=== PATIENT | female | born 1965 | race Caucasian/White ===

== ENCOUNTER 2019-05-03 08:10 | Outpatient (CLI) | payer OTHER, SELFPAY ==
--- NOTE | 2019-05-03 08:21 | US_ITS ---
WS: [id number] ADDITIONAL VIEWS LEFT MAMMOGRAM LEFT BREAST ULTRASOUND HISTORY: LT BREAST MASS COMPARISON: 03/10/2019 and 08/27/2017 LEFT MAMMOGRAM: Spot compression views and true ML. Partially obscured mass persists on spot compression views. Lobulated mass with partially obscured ally rders persists near 12:00. Mass is significantly obscured by the overlying normal soft tissue. Mass m easures about 15 mm. LEFT BREAST ULTRASOUND 2-D and color Doppler imaging submitted. At 11:00, 1 to 2 cm from the nipple is a lobulated cyst with smooth borders and increased through tra nsmission. This is either a single lobulated cyst or 2 cysts closely associated with each other with a thin imperceptible wall. The entire collection measures 1.8 x 1.0 cm. No increased vascularity or s olid component. US/US breast LT limited* [id number] IMPRESSION: BI-RADS: 2-Benign FOLLOW UP: 1 Year Follow-up Recently described LEFT breast mass corresponds to a a single lobulated cyst or 2 adjacent cysts.
== END 2019-05-03 08:11 | disposition home or self-care (01) ==
LOC: RADSHAW 08:13
PROVIDERS: Family Provider Family Medicine; Visit Provider Family Medicine
DX: N60.02 Solitary cyst of left breast (principal); N63.20 Unspecified lump in the left breast, unspecified quadrant
CPT/HCPCS: 76642; 77065

== ENCOUNTER 2020-10-21 12:33 | Outpatient (CLI) | payer OTHER, SELFPAY ==
--- NOTE | 2020-10-21 13:05 | MM_ITS ---
WS: [id number] SCREENING DIGITAL MAMMOGRAM WITH CAD HISTORY: SCREENING COMPARISON: 05/03/2019 and 03/10/2019 and 08/27/2017 Bilateral CC and MLO views submitted. Computer aided detection analyzed. Breast composition: The breasts are extremely dense, which lowers the sensitivity of mammography. Nodule in the anterior RIGHT breast measures 1.1 cm posterior to the nipple. Partially obscured tammy ns and slight increase in density. There is an additional ovoid partially obscured nodule upper out er quadrant of the LEFT breast at a middle depth measuring 2.8 x 1.8 cm. MM/[place] [id number] IMPRESSION: BI-RADS: 0-Incomplete: Need additional imaging evaluation FOLLOW UP: Need Additional Imaging Bilateral breasts: Spot compression views (CC and MLO). True ML. Ultrasound to follow if abnormality persists.
--- NOTE | 2020-10-21 13:55 | XR_ITS ---
WS: [id number] SCREENING DEXA SCAN [facility] CLINICAL INFORMATION: POST MENAPAUSAL COMPARISON: None. FINDINGS: The L1-L4 bone mineral density measures 1.078 g/cm2. This corresponds to a T score score of -0.9 and Z score of 0.0. Left femoral neck bone mineral density measures 0.932 g/cm2. This corresponds to a T score of -0.6 an d Z score of 0.1. Right femoral neck bone mineral density measures 0.961 g/cm2. This corresponds to a T score -0.4of an d Z score of 0.3. Mean femoral neck bone mineral density measures 0.947 g/cm2. This corresponds to a T score of -0.5 an d Z score of 0.2. XR/XR DEXA axial skeleton* [id number] IMPRESSION: Normal bone mineralization. Patient's FRAX calculated 10 year probability for major osteoporotic fracture i s 5.6 % and osteoporotic hip fracture is 0.2%.
== END 2020-10-21 12:34 | disposition home or self-care (01) ==
LOC: RADSHAW 12:40
PROVIDERS: PCP Family Medicine; Visit Provider Family Medicine
DX: Z12.31 Encounter for screening mammogram for malignant neoplasm of breast (principal); Z78.0 Asymptomatic menopausal state
CPT/HCPCS: 77067; 77080

== ENCOUNTER 2021-04-15 09:41 | Outpatient (CLI) | payer OTHER, SELFPAY ==
--- NOTE | 2021-04-15 09:46 | US_ITS ---
WS: [id number] ADDITIONAL VIEWS BILATERAL MAMMOGRAM AND BILATERAL BREAST ULTRASOUND ADDITIONAL VIEWS BILATERAL MAMMOGRAM HISTORY: INCONCLUSIVE MAMMOGRAM COMPARISON: 10/21/2020 and 05/03/2019 and 03/10/2019 and 08/27/2017 Right breast: Dense fibroglandular tissue anteriorly. Partially obscured asymmetry anterior at the [place] of the nipple measures 12 mm. Ultrasound to follow. Left breast: There are multiple partially obscured masses in the superior and upper outer quadrant of the LEFT breast for which no increase in size is identified. Ultrasound to follow to evaluate for so lid nodules. BREAST ULTRASOUND RIGHT breast: Simple cyst at 12:00 at the areolar measures 1.4 x 1.6 x 1.0 cm. Corresponds to the zack mographic abnormality. LEFT breast: Large cyst at 12:00, 1 cm from the nipple measures 2.5 x 2.4 x 1.3 cm. There are multipl e additional cysts with no solid masses in the upper outer quadrant. US/US breast BI limited* [id number] IMPRESSION: BI-RADS: 2-Benign FOLLOW UP: 1 Year Follow-up
== END 2021-04-15 09:42 | disposition home or self-care (01) ==
LOC: RADSHAW 09:44
PROVIDERS: PCP Family Medicine; Visit Provider Family Medicine
DX: R92.2 Inconclusive mammogram (principal); N63.21 Unspecified lump in the left breast, upper outer quadrant
CPT/HCPCS: 76642; 77066

== ENCOUNTER 2022-06-11 08:57 | Outpatient (CLI) | payer OTHER, SELFPAY ==
--- NOTE | 2022-06-11 09:05 | MM_ITS ---
WS: [id number] SCREENING DIGITAL BREAST TOMOSYNTHESIS MAMMOGRAM WITH CAD HISTORY: SCREENING COMPARISON: 04/15/2021, 10/21/2020 and 03/10/2019 Bilateral CC and MLO with tomosynthesis and synthetic mammography submitted. Computer aided detection analyzed. Breast composition: The breasts are heterogeneously dense, which may obscure small masses. Bilateral areas of increased consolidation and masses within each breast. On prior studies these have been desc ribed as cysts. These have changed in configuration and size therefore ultrasound evaluation needs to be performed to be sure there is no adjacent soft tissue mass developing. No calcification. No disto rtion. MM/[place] [id number] IMPRESSION: BI-RADS: 0-Incomplete: Need additional imaging evaluation FOLLOW UP: Need Additional Imaging Recommendation: Bilateral breast ultrasound. To ensure the change in these mass es is related to cyst formation. RIGHT breast: Anterior 12:00. LEFT breast: Upper outer quadrant middle depth.
== END 2022-06-11 08:58 | disposition home or self-care (01) ==
LOC: RAD 09:00
PROVIDERS: PCP Family Medicine; Visit Provider Family Medicine
DX: Z12.31 Encounter for screening mammogram for malignant neoplasm of breast (principal)
CPT/HCPCS: 77063; 77067

== ENCOUNTER 2022-07-24 12:14 | Outpatient (CLI) | payer OTHER, SELFPAY ==
--- NOTE | 2022-07-24 | US_ITS ---
WS: [id number] ULTRASOUND BILATERAL BREAST HISTORY: 04/15/2021 and 06/11/2022 COMPARISON: None available. TECHNIQUE: 2-D and Doppler. RIGHT breast: Stable cyst at 12:00 1 cm from the nipple. There is a new cyst containing debris at 12: 00 adjacent to the areola. This corresponds to the new finding mammographically. No solid mass. LEFT breast: Multiple cysts in the upper outer quadrant are identified. The number of cysts has incre ased. This corresponds to the findings mammographically. No solid mass. US/US breast BI limited* [id number] IMPRESSION: BI-RADS: 2-Benign FOLLOW-UP: 1 Year Follow-up New findings on the screening mammogram correspond to additional cysts within e ach breast. No solid mass.
== END 2022-07-24 12:15 | disposition home or self-care (01) ==
LOC: RAD 12:16
PROVIDERS: PCP Family Medicine; Visit Provider Family Medicine
DX: R92.8 Other abnormal and inconclusive findings on diagnostic imaging of breast (principal)
CPT/HCPCS: 76642

== ENCOUNTER 2022-12-12 13:59 | Emergency (ER) | payer OTHER, SELFPAY ==
[2022-12-12 14:10] VITALS: BP 188/108; PULSE 78; RESP 15; TEMP 36.5; O2SAT 98; BMI 23.6
--- NOTE | 2022-12-12 14:49 | W.ED.ABDPA2 ---
HPI - Abdominal Pain General: Chief Complaint: Abdominal Pain Stated Complaint: abd/back pain Time Seen by Provider: 12/12/22 14:08 Source: patient Mode of arrival: ambulatory History of Present Illness: 57-year-old female who presents to the emergency room complaining of chronic diarrhea for the last several weeks. Initially no abdominal pain now some epigastric discomfort. She seen her doctor for a couple of times a started on medications such as Pepcid and proton pump inhibitor she does not feel like it is improving at all she has not had any recent antibiotics she denies hematochezia melena hematemesis coffee-ground emesis she is not a heavy drinker. Denies any dysuria urgency or frequency. MD elicited complaint: abdominal pain Onset (ago): week(s) Pain Consistency: intermittent Location: Diffuse Severity: mild Quality: aching Exacerbating factors: nothing Relieving factors: nothing Associated Symptoms: Reports bloating, diarrhea and poor appetite; Denies anorexia, belching, change in bowel habits, change in stool character, chills, coffee ground emesis, constipation, GI cramping, dyspepsia, dysuria, excessive flatus, fever(s), heartburn, hematochezia, hematuria, hematemesis, fecal incontinence, loose stools, melena, nausea, syncope and vomiting Review of Systems Const: Reports: fatigue; Denies: fever(s) or chills ENMT: Denies: throat pain, ear or mastoid pain, nasal discharge or nasal congestion Card: Denies: chest pain or syncope Resp: Denies: dyspnea, productive cough or non-productive cough GI: Reports: abdominal pain, diarrhea and bloating; Denies: nausea, vomiting, hematemesis, coffee ground emesis, heartburn, constipation, GI cramping, belching, excessive flatus, fecal incontinence, change in bowel habits, change in stool character, hematochezia or melena : Denies: dysuria, urinary frequency, urinary urgency or hematuria Skin/Breast: Denies: rash or pruritus Physical Exam Const: COMMON NORMALS: no acute distress GENERAL APPEARANCE: cooperative and comfortable ORIENTATION/CONSCIOUSNESS: Yes awake, Yes oriented to person, Yes oriented to place and Yes oriented to time HENMT: COMMON NORMALS: normocephalic, atraumatic and hearing grossly normal bilaterally HEAD & SCALP: normocephalic and atraumatic Resp: COMMON NORMALS: normal respiratory effort, No retractions, No use of accessory muscles and clear to auscultation bilaterally AUSCULTATION: clear to auscultation bilaterally Cardio: COMMON NORMALS: regular rate, regular rhythm and No murmurs present (Cardio) RATE: regular rate RHYTHM: regular rhythm GI: COMMON NORMALS: Soft to palpation and No hepatosplenomegaly present AUSCULTATION: Yes normoactive bowel sounds PALPATION: Yes Soft to palpation, No Tenderness to palpation present (GI), No Guarding due to palpation present (GI) and Yes No hepatosplenomegaly present Extremity: COMMON NORMALS: normal to inspection, capillary refill normal, no clubbing, cyanosis or edema, no calf tenderness and no pedal edema Neuro: SENSORIUM/ORIENTATION: Yes oriented to person, Yes oriented to place and Yes oriented to time Skin: COMMON NORMALS: no rashes or lesions noted GENERAL SKIN EXAM: no rashes or lesions noted Course Vital Signs: Vital signs: Vital Signs Temperature 97.7 F 12/12/22 14:10 Pulse Rate 78 12/12/22 14:10 Respiratory Rate 15 12/12/22 14:10 Blood Pressure 188/108 12/12/22 14:10 Pulse Oximetry 98 12/12/22 14:10 MDM - Abdominal Pain Medical Decision Making Mild leukocytosis no left shift is an increased eosinophil count. No acute abdomen on exam and CT was unremarkable, with the exception of showing significant constipation. She is not able to give a stool sample at this time. I do not believe she has C. difficile suspect she is following as some encopresis. Laxatives to relieve constipation issues follow-up with her primary care provider if persists patient may need to be referred for colonoscopy. Medical Records I reviewed the patient's medical records. Lab Data I reviewed the patient's lab results. 12/12/22 14:45 12/12/22 14:45 Labs/Radiology: Radiology Impressions Abdomen/Pelvis CT 12/12/22 16:02 IMPRESSION: 1. No acute findings. 2. Findings suggestive of constipation. No bowel obstruction. Laboratory Results WBC 17.10 10^3/uL (3.29-11.43) H 12/12/22 14:45 RBC 4.53 10^6/uL (3.85-5.65) 12/12/22 14:45 Hgb 14.70 g/dL (11.27-16.99) 12/12/22 14:45 Hct 41.2 % (36-47) 12/12/22 14:45 MCV 90.9 fl (85-98) 12/12/22 14:45 MCH 32.5 pg (27-33) 12/12/22 14:45 MCHC 35.7 g/dL (30-55) 12/12/22 14:45 RDW 12.6 % (12.1-15.1) 12/12/22 14:45 Plt Count 346 10^3/cmm (157-399) 12/12/22 14:45 MPV 9.6 fL (7.4-10.4) 12/12/22 14:45 Neut % (Auto) 31.9 % 12/12/22 14:45 Lymph % (Auto) 26.5 % 12/12/22 14:45 [place] % (Auto) 3.9 % 12/12/22 14:45 Eos % (Auto) 37.1 % 12/12/22 14:45 Baso % (Auto) 0.4 % 12/12/22 14:45 Neut # (Auto) 5.46 10^3/uL (1.8-7.7) 12/12/22 14:45 Lymph # (Auto) 4.5 10^3/uL (0.8-4.8) 12/12/22 14:45 [place] # (Auto) 0.7 10^3/uL (0.2-0.9) 12/12/22 14:45 Eos # (Auto) 6.3 10^3/uL (0.0-0.8) H 12/12/22 14:45 Baso # (Auto) 0.1 10^3/uL (0.0-0.1) 12/12/22 14:45 Nucleated RBC % (auto) 0 % 12/12/22 14:45 Nucleated RBCs # 0.0 /100WBC 12/12/22 14:45 Sodium 138 mmol/L (136-145) 12/12/22 14:45 Potassium 3.9 mmol/L (3.5-5.1) 12/12/22 14:45 Chloride 104 mmol/L (98-107) 12/12/22 14:45 Carbon Dioxide 24 mmol/L (22-29) 12/12/22 14:45 Anion Gap 13.9 (5-19) 12/12/22 14:45 BUN 12 mg/dL (6-20) 12/12/22 14:45 Creatinine 0.6 mg/dL (0.5-0.9) 12/12/22 14:45 GFR Calculation 103.0 mL/min (90-130) 12/12/22 14:45 Glucose 118 mg/dL (65-115) H 12/12/22 14:45 Calculated Osmolality 287 mOsm/kg (285-295) 12/12/22 14:45 Calcium 8.7 mg/dL (8.5-10.5) 12/12/22 14:45 Total Bilirubin 0.2 mg/dL (0.15-1.2) 12/12/22 14:45 AST 17 U/L (0-32) 12/12/22 14:45 ALT 12 U/L (0-33) 12/12/22 14:45 Alkaline Phosphatase 56 U/L (35-105) 12/12/22 14:45 Total Protein 6.4 g/dL (6.6-8.7) L 12/12/22 14:45 Albumin 3.9 g/dL (3.5-5.2) 12/12/22 14:45 Globulin 2.5 g/dL (1.3-4.6) 12/12/22 14:45 Lipase 55 U/L (13-60) 12/12/22 14:45 Discharge Plan Discharge Patient Disposition: Home Clinical Impression: Encopresis Condition: Stable Prescriptions: No Action zileuton 600 mg tablet, ER multiphase 12 hr 2 tab PO Q12H Multi-Vitamins Tablet 1 tab PO DAILY famotidine 20 mg tablet 20 mg PO BID Premarin 0.625 mg tablet 0.625 mg PO DAILY ProAir HFA 90 mcg/actuation Hfa Aerosol Inhaler 1 inh INHALATION QID PRN (Reason: Shortness Of Breath) loratadine 10 mg Tablet 10 mg PO DAILY Prilosec OTC 20 mg Tablet,Delayed Release (Dr/Ec) 20 mg PO BID niacin 1,000 mg Tablet Extended Release 1,000 mg PO DAILY Discharge Orders: Discharge ED (Routine); Ordered 12/12/22 Ordered By: Rell Liriano Referrals: Michael Julio MD [Primary Care Provider] - Discharge Diet: Usual diet Discharge Activity: Increase activity as tolerated Patient Instructions: Constipation - Adult, Opioid Safety, Pain Management Coding Level of Care Code ED [employer] In[employer] for [employer] Leo
[2022-12-12 15:10] LABS: Basophils # 0.1 10^3/uL (0.0-0.1); Basophils % 0.4 %; Eosinophils # 6.3 10^3/uL (0.0-0.8); Eosinophils % 37.1 %; Hematocrit 41.2 % (36-47); Lymphocytes # 4.5 10^3/uL (0.8-4.8); Lymphocytes % 26.5 %; Mean Corpuscular HGB Conc 35.7 g/dL (30-55); Mean Corpuscular Hemoglobin 32.5 pg (27-33); Mean Corpuscular Volume 90.9 fl (85-98); Mean Platelet Volume 9.6 fL (7.4-10.4); Monocytes # 0.7 10^3/uL (0.2-0.9); Monocytes % 3.9 %; Neutrophils # 5.46 10^3/uL (1.8-7.7); Neutrophils % 31.9 %; Nucleated Red Blood Cells % 0 %; Platelet Count 346 10^3/cmm (157-399); Red Blood Count 4.53 10^6/uL (3.85-5.65); Red Cell Distribution Width 12.6 % (12.1-15.1)
[2022-12-12 15:40] LABS: Alanine Aminotransferase 12 U/L (0-33); Albumin Level 3.9 g/dL (3.5-5.2); Alkaline Phosphatase 56 U/L (35-105); Anion Gap 13.9 (5-19); Aspartate Amino Transferase 17 U/L (0-32); Blood Urea Nitrogen 12 mg/dL (6-20); Calcium 8.7 mg/dL (8.5-10.5); Carbon Dioxide 24 mmol/L (22-29); Chloride 104 mmol/L (98-107); Globulin 2.5 g/dL (1.3-4.6); Glucose 118 mg/dL (65-115); Lipase 55 U/L (13-60); Osmolality Calculated 287 mOsm/kg (285-295); Potassium 3.9 mmol/L (3.5-5.1); Sodium 138 mmol/L (136-145); Total Bilirubin 0.2 mg/dL (0.15-1.2); Total Protein 6.4 g/dL (6.6-8.7)
--- NOTE | 2022-12-12 16:02 | CTR_ITS ---
PROCEDURE INFORMATION: Exam: CT Abdomen And Pelvis With Contrast Exam date and time: 12/12/2022 4:07 PM Age: 57 years old Clinical indication: Abdominal pain; Generalized; Additional info: Abd pain TECHNIQUE: Imaging protocol: Computed tomography of the abdomen and pelvis with contrast. Radiation optimization: All CT scans at this facility use at least one of these dose optimization techniques: automated exposure control; mA and/or kV adjustment per patient size (includes targeted exams where dose is matched to clinical indication); or iterative reconstruction. Contrast material: OMNI 350; Contrast volume: 100 ml; Contrast route: INTRAVENOUS (IV); REPORTING DATA: Count of CT and Cardiac NM exams in prior 12 months: This patient has received 0 known CTs and 0 known cardiac nuclear medicine studies in the 12 months prior to the current study. COMPARISON: No relevant prior studies available. RADIATION DOSE METRICS: Total DLP (mGy-cm): 347.22 FINDINGS: Liver: Normal. No mass. Gallbladder and bile ducts: Normal. No calcified stones. No ductal dilation. Pancreas: Normal. No ductal dilation. Spleen: Normal. No splenomegaly. Adrenal glands: Normal. No mass. Kidneys and ureters: Normal. No hydronephrosis. Stomach and bowel: Stool throughout the colon suggests constipation. No bowel obstruction. Appendix: No evidence of appendicitis. Intraperitoneal space: Unremarkable. No free air. No significant fluid collection. Vasculature: Normal for age. No abdominal aortic aneurysm. Lymph nodes: Unremarkable. No enlarged lymph nodes. Urinary bladder: Unremarkable as visualized. Reproductive: Hysterectomy. Bones/joints: Unremarkable. No acute fracture. Soft tissues: Unremarkable. CT/CT abdomen pelvis w con* [id number] IMPRESSION: 1. No acute findings. 2. Findings suggestive of constipation. No bowel obstruction.
[2022-12-12] MEDS: iohexol 350 mg/mL 500 mL Btl (per mL) IV (16:10)
== END 2022-12-12 18:01 | disposition home or self-care (01) ==
PROVIDERS: Emergency Provider Family Medicine; PCP Family Medicine
DX: R15.9 Full incontinence of feces (principal)
CPT/HCPCS: 74177; 80053; 83690; 85025; 99285; Q9967

== ENCOUNTER 2023-08-13 10:20 | Outpatient (CLI) | payer OTHER, SELFPAY ==
--- NOTE | 2023-08-13 10:34 | MM_ITS ---
WS: [id number] BILATERAL SCREENING DIGITAL TOMOSYNTHESIS MAMMOGRAM WITH CAD HISTORY: SCREENING COMPARISON: 06/11/2022, 10/21/2020 and ultrasound 07/24/2022 Bilateral CC and MLO views with tomosynthesis and synthetic mammography submitted. Computer aided det ection analyzed. Breast composition: The breasts are heterogeneously dense, which may obscure small masses. No suspici ous masses, microcalcifications or architectural distortion. Reidentified are bilateral breast masses which have been previously described. Central to the nipple in the RIGHT breast is a 3.9 x 2.5 cm ma ss. There is an additional mass upper outer quadrant of the LEFT breast measuring 4.1 x 2.8 cm. Ultra sound has been performed on these consistent with multiple cysts. No new mass or distortion. MM/[place] [id number] IMPRESSION: BI-RADS: 2-Benign FOLLOW UP: 1 Year Follow-up
== END 2023-08-13 10:21 | disposition home or self-care (01) ==
LOC: RAD 10:21
PROVIDERS: PCP Family Medicine; Visit Provider Family Medicine
DX: Z12.31 Encounter for screening mammogram for malignant neoplasm of breast (principal)
CPT/HCPCS: 77063; 77067

== ENCOUNTER 2024-08-24 08:34 | Outpatient (CLI) | payer OTHER, SELFPAY ==
--- NOTE | 2024-08-24 08:39 | MM_ITS ---
WS: [id number] SCREENING DIGITAL BREAST TOMOSYNTHESIS MAMMOGRAM WITH CAD HISTORY: SCREENING COMPARISON: 08/13/2023, 06/11/2022, 04/15/2021 Bilateral CC and MLO with tomosynthesis and synthetic mammography submitted. Computer aided detection analyzed. Breast composition: The breasts are heterogeneously dense, which may obscure small masses. Patient has a large slightly lobulated high density mass in the upper outer quadrant of the LEFT breast measuring 3.9 x 4.4 x 4.1 cm. This mass has been present on multiple prior examinations but has slightly increased slowly in time. Ultrasound has demonstrated multiple benign cysts in the past. As this mass is increasing in size additional evaluation is recommended. Otherwise no suspicious mass or grouping of calcification within either breast. MM/MM [facility] tomosynthesis [id number] IMPRESSION: BI-RADS: 0 - Incomplete: Need additional imaging evaluation FOLLOW UP: Need Additional Imaging Recommendation: LEFT breast ultrasound, limited upper outer quadrant. Patient has known previously described cysts in the upper outer quadrant. As th e mass is increasing slightly in size over several years recommend ultrasound e valuation to be sure there is no superimposed solid mass.
== END 2024-08-24 08:35 | disposition home or self-care (01) ==
PROVIDERS: PCP Family Medicine; Visit Provider Family Medicine
DX: Z12.31 Encounter for screening mammogram for malignant neoplasm of breast (principal); R92.333 Mammographic heterogeneous density, bilateral breasts; N63.21 Unspecified lump in the left breast, upper outer quadrant
CPT/HCPCS: 77063; 77067

== ENCOUNTER 2024-12-18 07:57 | Outpatient (CLI) | payer OTHER, SELFPAY ==
--- NOTE | 2024-12-18 08:04 | US_ITS ---
WS: [id number] ULTRASOUND LEFT BREAST HISTORY: Follow-up screening mammogram. Mass upper outer quadrant LEFT breast. Patient has known cysts. COMPARISON: Mammogram 08/24/2024, 08/13/2023, prior ultrasound 07/24/2022, 04/15/2021 TECHNIQUE: 2-D and Doppler. Ultrasound is directed to the upper outer quadrant of the LEFT breast. The mass previously described is increasing in size is identified as 2 adjacent cysts with the entire complex measuring 3.9 x 4.6 x 1.8 cm. This is a simple cyst. There are additional simple cysts also within the upper outer quadrant. There is an additional mass which is not a simple cyst at 1:00, 4 cm from the nipple. There are low-level echoes present within and no through transmission. This mass measures 0.6 x 0.8 x 0.6 cm. This mass was identified on prior studies but with increasing echogenicity. Mass is also decreased in size. Prior measurement of 1.0 x 1.0 x 0.9 cm. US/US breast LT limited* [id number] IMPRESSION: BI-RADS: 3- Probably Benign FOLLOW-UP: 6 Month Follow-up 1. The large mass described as increasing in size by recent mammogram is a fabian up of cysts measuring 3.9 x 4.6 x 1.8 cm. No additional follow-up necessary. 2. One of the previously described cysts has changed in characteristics as see n on prior ultrasounds. The mass is no longer completely cystic but has also de creased in size. Favor this is probably hemorrhagic cyst. Recommend 6-month ult rasound follow-up of the complex cystic mass at 1:00, 4 cm from the nipple.
== END 2024-12-18 07:58 | disposition home or self-care (01) ==
LOC: RAD 07:58
PROVIDERS: PCP Family Medicine; Visit Provider Family Medicine
DX: R92.8 Other abnormal and inconclusive findings on diagnostic imaging of breast (principal); N60.02 Solitary cyst of left breast; N63.21 Unspecified lump in the left breast, upper outer quadrant
CPT/HCPCS: 76642